=== PATIENT | female | born 1950 | race Caucasian/White ===

== ENCOUNTER 2017-02-03 10:00 | Outpatient (RCR) | payer BC | END 2017-02-14 07:56 | disposition home or self-care (01) | LOC: PT 10:00 | DX: M54.2 Cervicalgia (principal) ==

== ENCOUNTER → 2019-01-30 | Outpatient (CLI) | payer MEDICARE, BC | LOC: MAMMO 10:21 | DX: Z12.31 Encounter for screening mammogram for malignant neoplasm of breast (principal) ==

== ENCOUNTER 2019-07-25 10:00 | Outpatient (RCR) | payer MEDICARE, BC | END 2019-08-21 | disposition still patient (30) | LOC: PT | DX: M19.012 Primary osteoarthritis, left shoulder (principal) ==

== ENCOUNTER → 2020-05-15 11:15 | Outpatient (RCR) | payer MEDICARE, BC | END | disposition still patient (30) | LOC: PT 02-28 10:30 | DX: M19.011 Primary osteoarthritis, right shoulder (principal); Z98.890 Other specified postprocedural states ==

== ENCOUNTER → 2020-07-15 | Outpatient (CLI) | payer MEDICARE, BC | LOC: MAMMO 10:43 | DX: Z12.31 Encounter for screening mammogram for malignant neoplasm of breast (principal) ==

== ENCOUNTER → 2021-07-15 | Outpatient (CLI) | payer MEDICARE, BC | LOC: MAMMO 15:07 | DX: Z12.31 Encounter for screening mammogram for malignant neoplasm of breast (principal) ==

== ENCOUNTER → 2022-08-04 | Outpatient (CLI) | payer MEDICARE, OTHER | LOC: MAMMO 12:52 | DX: Z12.31 Encounter for screening mammogram for malignant neoplasm of breast (principal) ==

== ENCOUNTER 2023-08-04 10:40 | Outpatient (RCR) | payer MEDICARE, OTHER | END 2023-08-28 | disposition home or self-care (01) | LOC: PT | DX: M17.0 Bilateral primary osteoarthritis of knee (principal); Z96.651 Presence of right artificial knee joint ==

== ENCOUNTER 2023-08-30 08:00 | Outpatient (RCR) | payer MEDICARE, OTHER | END 2023-09-28 | disposition home or self-care (01) | LOC: PT | DX: M17.0 Bilateral primary osteoarthritis of knee (principal); Z96.651 Presence of right artificial knee joint ==

== ENCOUNTER 2023-09-29 08:00 | Outpatient (RCR) | payer MEDICARE, OTHER | END 2023-10-27 | disposition home or self-care (01) | LOC: PT | DX: M17.0 Bilateral primary osteoarthritis of knee (principal); Z96.651 Presence of right artificial knee joint ==

== ENCOUNTER 2023-10-24 10:18 | Outpatient (RCR) | payer MEDICARE, OTHER | END 2023-10-27 | disposition home or self-care (01) | LOC: PT | DX: M17.0 Bilateral primary osteoarthritis of knee (principal); Z96.652 Presence of left artificial knee joint ==

== ENCOUNTER → 2023-12-21 | Outpatient (CLI) | payer MEDICARE, OTHER | LOC: MAMMO 10:05 | DX: Z12.31 Encounter for screening mammogram for malignant neoplasm of breast (principal) ==